=== PATIENT | female | born 1985 | race Two or more races ===

== ENCOUNTER 2024-07-22 00:08 | Emergency (ER) | payer MEDICAID, OTHER ==
[~2024-07-22] VITALS: Ht 157.5 cm; Wt 68.0 kg
--- NOTE | 2024-07-22 01:00 | NUR ---
Ce dill in [facility] - 07/22/24 at 0203 by BIN PT BACK TO RM FROM CT
--- NOTE | 2024-07-22 01:03 | NUR ---
BIBS C/O L FLANK PAIN AND DISCOMFORT WHEN URINATING X TUESDAY DENIES N/V
[2024-07-22] MEDS: oxyCODONE/APAP (5/325 MG) 1 UDTAB TABLET PO ONE (01:24)
[2024-07-22] MEDS ORDERED: oxyCODONE/APAP (5/325 MG) 1 UDTAB TABLET ONE (01:24)
[2024-07-22] MEDS: IV NS 0.9% 1,000 ML BAG IV ONE (01:25)
--- NOTE | 2024-07-22 01:28 | NUR ---
IV LINE ESTABLISHED, [id number]
--- NOTE | 2024-07-22 01:28 | NUR ---
WEIVER FORM SIGNED
--- NOTE | 2024-07-22 01:28 | NUR ---
BLOOD COLLECTED AND SENT TO LAB
[2024-07-22 01:34] LABS: BASOPHILS % (AUTO) 0.4 % (0.0-2.0); EOSINOPHILS # (AUTO) 0.2 K/uL (0.0-0.7); EOSINOPHILS % (AUTO) 1.9 % (0.0-6.0); HEMATOCRIT 37 % (33-45); HEMOGLOBIN 12.6 g/dL (11.5-14.8); LYMPHOCYTES # (AUTO) 2.6 K/uL (0.8-4.8); LYMPHOCYTES % (AUTO) 26.9 % (20.0-44.0); MEAN CORPUSCULAR HEMOGLOBIN 33 PG (26.0-33.0); MEAN CORPUSCULAR HGB CONC 34 g/dl (31.0-36.0); MEAN CORPUSCULAR VOLUME 95 fL (82-100); MONOCYTES # (AUTO) 0.7 K/uL (0.1-1.30); NEUTROPHILS # (AUTO) 6.2 K/uL (1.8-8.9); NEUTROPHILS % (AUTO) 63.8 % (43.0-81.0); PLATELET COUNT (AUTO) 431 K/uL (150-450); RED BLOOD CELL COUNT(AUTO) 3.83 MIL/uL (4.0-5.2); RED CELL DISTRIBUTION WIDTH 12.1 % (11.5-15.0); WHITE BLOOD COUNT (AUTO) 9.8 K/uL (4.3-11.0)
--- NOTE | 2024-07-22 01:36 | NUR ---
PT TAKEN TO CT
[2024-07-22 01:40] LABS: APPEARANCE,URINE CLEAR (CLEAR); BILIRUBIN,URINE NEGATIVE (NEGATIVE); BLOOD, URINE 2+ Ery/uL (NEGATIVE); COLOR,URINE YELLOW (YELLOW); KETONES,URINE NEGATIVE (NEGATIVE); LEUKOCYTE ESTERASE ,URINE NEGATIVE (NEGATIVE); NITRITE, URINE NEGATIVE (NEGATIVE); PREGNANCY TEST URINE QUAL NEGATIVE (NEGATIVE); PROTEIN,URINE NEGATIVE (NEGATIVE); UGLUCOSE NEGATIVE (NEGATIVE); UROBILINOGEN,URINE 0.2 EU/dL (0.2)
[2024-07-22 01:40] LABS: CREATININE 0.7 mg/dL (0.6-1.3); POTASSIUM 3.7 mmol/L (3.5-5.1)
[2024-07-22 01:41] LABS: ADD URINE CULTURE NO; BACTERIA,URINE Rare /HPF (None Seen); SQUAMOUS EPITHELIAL CELL,UR Rare /HPF (None Seen); WBC,URINE 0-2 /HPF (0-3)
[2024-07-22 01:45] LABS: ALBUMIN 3.6 g/dL (3.4-5.0); BILIRUBIN,DIRECT 0.1 mg/dL (0.0-0.2); BILIRUBIN,TOTAL 0.5 mg/dL (0.2-1.0); TOTAL PROTEIN, SERUM 6.9 g/dL (6.4-8.2)
--- NOTE | 2024-07-22 01:55 | NUR ---
PT BACK TO FROM CT
[2024-07-22] MEDS ORDERED: MORPHINE SULFATE INJ 4 MG/ML DISP.SYRIN ONE (05:56)
[2024-07-22] MEDS: MORPHINE SULFATE INJ 2 MG/ML DISP.SYRIN IV ONE (05:59)
[2024-07-22] MEDS ORDERED: IOHEXOL-300 100 ML VIAL IV ONE (06:43)
[2024-07-22] MEDS ORDERED: IBUP-1953 PO (07:58)
[2024-07-22] MEDS ORDERED: AMOX-430 PO (07:58)
[2024-07-22 08:11] VITALS: BP 118/72; TEMP 98.7; O2SAT 99
--- NOTE | 2024-07-22 08:13 | NUR ---
Patient discharged to home in stable condition. Written and verbal after care instructions given. Patient verbalizes understanding of instruction.IV removed. Catheter intact and site benign. Pressure and 4x4 applied to site. No bleeding noted.
== END 2024-07-22 08:12 | disposition home or self-care (01) ==
LOC: ER 00:10
DX: R10.32 Left lower quadrant pain (principal); R19.7 Diarrhea, unspecified; F31.9 Bipolar disorder, unspecified; Z87.442 Personal history of urinary calculi
CPT/HCPCS: 99285; 74174; 74176; 96374; 96361; 85025; 80048; 87086; 83690; 80076; 84703; 81001; 36415; J2270; J7030; Q9967

== ENCOUNTER 2024-07-28 12:33 | Emergency (ER) | payer MEDICAID ==
[~2024-07-28 12:33] MED LIST: AMOX-430 PO; IBUP-1953 PO
== END 2024-07-28 13:24 | disposition left against medical advice (07) ==
LOC: ER 13:24
DX: N28.9 Disorder of kidney and ureter, unspecified (principal); Z53.21 Procedure and treatment not carried out due to patient leaving prior to being seen by health care provider